=== PATIENT | female | born 1965 | race African-American/Black ===

== ENCOUNTER 2019-04-20 08:18 | Day surgery (SDC) | payer OTHER ==
[2019-04-20] MEDS ORDERED: CLINDAMYCIN 600 MG/D5W RTU 600 MG/50 ML RTUPB IV ONE (09:11)
[2019-04-20 09:18] LABS: HEMATOCRIT 45.4 % (36.0-47.0); HEMOGLOBIN 15.3 g/dL (12.0-15.5); MEAN CORPUSCULAR HEMOGLOBIN 31.3 pg (27.0-33.4); MEAN CORPUSCULAR HGB CONC 33.8 g/dL (32.0-36.0); MEAN CORPUSCULAR VOLUME 93 fl (80-97); PLATELET COUNT 259 10^3/uL (150-450); RED BLOOD COUNT 4.91 10^6/uL (3.72-5.28); RED CELL DISTRIBUTION WIDTH 14.6 % (11.5-14.0); WHITE BLOOD COUNT 8.9 10^3/uL (4.0-10.5)
[2019-04-20 09:43] LABS: ANION GAP 9 (5-19); BLOOD UREA NITROGEN 13 mg/dL (7-20); CALCIUM 10.1 mg/dL (8.4-10.2); CARBON DIOXIDE 29 mmol/L (22-30); CHLORIDE 104 mmol/L (98-107); GLUCOSE 110 mg/dL (75-110); POTASSIUM 4.2 mmol/L (3.6-5.0)
--- NOTE | 2019-04-20 11:08 | RADIOLOGY REPORT (SQ) ---
EXAM DESCRIPTION: CHEST SINGLE VIEW COMPLETED DATE/TIME: 04/20/2019 9:34 am REASON FOR STUDY: pre op COMPARISON: 11/26/2014 EXAM PARAMETERS: NUMBER OF VIEWS: One view. TECHNIQUE: Single frontal radiographic view of the chest acquired. RADIATION DOSE: NA LIMITATIONS: None. FINDINGS: LUNGS AND PLEURA: No opacities, masses or pneumothorax. No pleural effusion. MEDIASTINUM AND HILAR STRUCTURES: No masses. Contour normal. HEART AND VASCULAR STRUCTURES: Heart normal in size. Normal vasculature. BONES: No acute findings. HARDWARE: None in the chest. OTHER: No other significant finding. IMPRESSION: NO ACUTE RADIOGRAPHIC FINDING IN THE CHEST. TECHNICAL DOCUMENTATION: JOB ID: [id number] [employer]- All Rights Reserved Reading location - IP/workstation name: [email or web address]
[2019-04-20] MEDS ORDERED: PROPOFOL INJ 200 MG/20 ML VIAL IV ONE (11:53)
[2019-04-20] MEDS ORDERED: LIDOCAINE 2% INJ-PF (100 MG/5 ML) SYRINGE ONE (11:53)
[2019-04-20] MEDS ORDERED: DEXAMETHASONE SOD PHOSPHATE INJ 4 MG/1 ML VIAL ONE (11:54)
[2019-04-20] MEDS ORDERED: ONDANSETRON HCL INJ/PF 4 MG/2 ML SDV ONE (11:54)
[2019-04-20] MEDS ORDERED: MIDAZOLAM 2 MG/2 ML INJ ONE (11:54)
[2019-04-20] MEDS ORDERED: FENTANYL CITRATE INJ/PF 100 MCG/2 ML AMPUL ONE (11:54)
[2019-04-20] MEDS ORDERED: KETAMINE HCL INJ 500 MG/10 ML VIAL ONE (12:07)
[2019-04-20] MEDS ORDERED: BUPIVACAINE HCL 0.5 % INJ/PF 30 ML SDV ONE (12:09)
[2019-04-20] MEDS ORDERED: LIDOCAINE 1%/EPINEPHRINE INJ 20 ML VIAL ONE (12:09)
[2019-04-20] MEDS ORDERED: DIPHENHYDRAMINE HCL 50 MG/ML VIAL IV PRN (12:49)
[2019-04-20] MEDS ORDERED: MEPERIDINE HCL/PF INJ 25 MG/1 ML DISP.SYRIN IV PRN (12:49)
[2019-04-20] MEDS ORDERED: FENTANYL CITRATE INJ/PF 100 MCG/2 ML AMPUL IV PRN ×3 (12:49)
[2019-04-20] MEDS ORDERED: PROMETHAZINE HCL INJ 25 MG/1 ML VIAL IV PRN ×2 (12:49)
--- NOTE | 2019-04-20 12:55 | Discharge Summary ---
Discharge Summary (SDC) - Discharge Final Diagnosis: Right medial meniscal tear Date of Surgery: 04/20/19 Discharge Date: 04/20/19 Condition: Good Treatment or Instructions: Weightbearing as tolerated ambulation. Remove compressive wrap on Thursday. Underlying OpSite dressing can be left in place until you return to the office. You can shower once the compressive wrap has been removed. Please do not immerse it in a tub. Referrals: OSORIO MAURER MD [ACTIVE STAFF] - 05/05/19 10:00 am Discharge Diet: Regular Respiratory Treatments at Home: Deep Breathing/Coughing Discharge Activity: Balance Activity w/Rest, No tub bath Home Care Assistance: None Needed Report the Following to Your Physician Immediately: Shortness of Breath, Fever over 101 Degrees, Drainage-Foul Smelling
--- NOTE | 2019-04-20 12:56 | Operative Report ---
Operative Report DATE OF SURGERY: 04/20/19 PREOPERATIVE DIAGNOSIS: Right medial meniscal tear POSTOPERATIVE DIAGNOSIS: Right medial meniscal tear. Grade I chondromalacia medial compartment. Intact ACL. Grade I chondromalacia lateral compartment. Intact lateral meniscus. Grade I chondromalacia patellofemoral compartment OPERATION: For scopic right partial medial meniscectomy SURGEON: OSORIO MAURER ANESTHESIA: LMAC ESTIMATED BLOOD LOSS: Minimal PROCEDURE: With the patient supine on the operating table the right lower extremities prepped and draped in sterile fashion. The knee is insufflated with accommodation Marcaine, Xylocaine, and epinephrine. Subsequently medial and lateral infrapatellar portals are created and used for the introduction of the arthroscope and debridements mentation. Joint is examined in systematic fashion findings as above. Using combination of basket Sears, mechanical shaver, electric frequency ablation probe a partial medial meniscectomy performed from approximately 8:00 to 12:00 on the face of the dial. The joint is again examined in systematic fashion with no new findings. Instrumentation was removed. Portals reapproximated interrupted nylon. A sterile compressive dressing is applied and the patient returned to the PACU in satisfactory condition.
[2019-04-20] MEDS ORDERED: ALBUTEROL SULFATE 0.083% NEB 2.5 MG/3 ML AMPUL NEB ONE (13:10)
[2019-04-20] MEDS ORDERED: OXYCODONE-ACETAMINOPHEN 5-325 MG TABLET ONE (14:05)
[2019-04-20] MEDS ORDERED: OXYCODONE-ACETAMINOPHEN 5-325 MG TABLET PO PRN (14:12)
[2019-04-20 15:25] VITALS: BP 125/83
--- NOTE | 2019-04-20 21:39 | EKG REPORT ---
SEVERITY:- NORMAL ECG - SINUS RHYTHM : Confirmed by: Filippo Camarillo 20-Apr-2019 21:38:16
== END 2019-04-20 15:10 | disposition home or self-care (01) ==
LOC: OROUT 08:18
PROVIDERS: ATTEND Orthopaedic Surgery
DX: M23.303 Other meniscus derangements, unspecified medial meniscus, right knee (principal); M22.41 Chondromalacia patellae, right knee; M25.561 Pain in right knee; Z79.899 Other long term (current) drug therapy; Z79.51 Long term (current) use of inhaled steroids; E78.5 Hyperlipidemia, unspecified; J45.909 Unspecified asthma, uncomplicated
CPT/HCPCS: 36415; 85027; 80048; 71045; 93005; 93010; 29881; J2250; J3490 ×3; J1100; J3010; J2001; J2405; J2704

== ENCOUNTER 2020-01-27 00:02 | Emergency (ER) | payer OTHER ==
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
[2020-01-27 00:51] LABS: ALBUMIN 4.6 g/dL (3.5-5.0); ALKALINE PHOSPHATASE 78 U/L (38-126); ANION GAP 12 (5-19); ASPARTATE AMINO TRANSFERASE 23 U/L (14-36); BILIRUBIN,DIRECT 0.3 mg/dL (0.0-0.4); BILIRUBIN,TOTAL 0.5 mg/dL (0.2-1.3); BLOOD UREA NITROGEN 8 mg/dL (7-20); CARBON DIOXIDE 26 mmol/L (22-30); CHLORIDE 106 mmol/L (98-107); GLUCOSE 128 mg/dL (75-110); POTASSIUM 4.1 mmol/L (3.6-5.0); TOTAL PROTEIN 7.6 g/dL (6.3-8.2)
--- NOTE | 2020-01-27 00:57 | RADIOLOGY REPORT (SQ) ---
EXAM DESCRIPTION: CT HEAD WITHOUT IV CONTRAST COMPLETED DATE/TME: 01/27/2020 00:25 CLINICAL INDICATION: 55-year-old female with headache. COMPARISON: None. TECHNIQUE: CT brain without contrast. This exam was performed according to our departmental dose optimization program which includes use of automated exposure control, adjustment of the mA and/or kV according to patient size and/or use of iterative reconstruction technique. FINDINGS: The ventricles, sulci, and cisterns are within normal limits. The nicolas-white matter differentiation is preserved. There is no mass effect, midline shift, intra- or extra-axial fluid collection/acute hemorrhage. The osseous structures are unremarkable. The paranasal sinuses and mastoid air cells are clear. IMPRESSION: No acute intracranial abnormalities.
[2020-01-27 01:00] LABS: HEMOGLOBIN 14.7 g/dL (12.0-15.5); MEAN CORPUSCULAR HEMOGLOBIN 31.5 pg (27.0-33.4); MEAN CORPUSCULAR HGB CONC 34.1 g/dL (32.0-36.0); MEAN CORPUSCULAR VOLUME 92 fl (80-97); PLATELET COUNT 264 10^3/uL (150-450); RED BLOOD COUNT 4.66 10^6/uL (3.72-5.28); RED CELL DISTRIBUTION WIDTH 13.7 % (11.5-14.0); WHITE BLOOD COUNT 9.4 10^3/uL (4.0-10.5)
[2020-01-27 01:15] LABS: ABSOLUTE LYMPHOCYTES# (MANUAL) 4.7 10^3/uL (0.5-4.7); ABSOLUTE MONOCYTES # (MANUAL) 0.8 10^3/uL (0.1-1.4); BASOPHILS % (MANUAL) 0 % (0-2); EOSINOPHILS % (MANUAL) 6 % (0-6); LYMPHOCYTES % (MANUAL) 50 % (13-45); MONOCYTES % (MANUAL) 9 % (3-13); PLATELET COMMENT ADEQUATE; RBC MORPHOLOGY COMMENT NORMO-CYTIC/CHROMIC; SEGMENTED NEUTROPHILS % (MAN) 35 % (42-78); TOTAL CELLS COUNTED 100
--- NOTE | 2020-01-27 01:17 | RADIOLOGY REPORT (SQ) ---
EXAM DESCRIPTION: XR CHEST 1 VIEW COMPLETED DATE/TME: 01/27/2020 00:25 CLINICAL HISTORY: 55 years, Female, chest pain COMPARISON: X-ray chest 04/20/2019 NUMBER OF VIEWS: TECHNIQUE: LIMITATIONS: None. FINDINGS: No evidence of pulmonary infiltrate or pleural effusion. The heart and mediastinum are unremarkable. Pulmonary vascularity appears normal. There is no significant change, as compared with the prior x-ray(s). IMPRESSION: No acute finding. copyright 2010 [employer]- All Rights Reserved
[2020-01-27] MEDS ORDERED: LORAZEPAM INJ 2 MG/1 ML VIAL IV ONE (02:21)
[2020-01-27] MEDS ORDERED: ONDANSETRON HCL INJ/PF 4 MG/2 ML SDV IV ONE (02:22)
[2020-01-27] MEDS ORDERED: ACETAMINOPHEN 325 MG TABLET PO ONE (02:26)
[2020-01-27 03:50] VITALS: BP 132/89
--- NOTE | 2020-01-27 21:31 | EKG REPORT ---
SEVERITY:- ABNORMAL ECG - SINUS TACHYCARDIA BASELINE ARTIFSSSSCT. PROBABLY NORMAL EKG. : Confirmed by: Carol Ochoa MD 27-Jan-2020 21:30:51
== END 2020-01-27 05:39 | disposition home or self-care (01) ==
LOC: ER 00:02
DX: S06.0X9A Concussion with loss of consciousness of unspecified duration, initial encounter (principal); W22.8XXA Striking against or struck by other objects, initial encounter; G44.319 Acute post-traumatic headache, not intractable; R07.9 Chest pain, unspecified; R11.0 Nausea; J44.9 Chronic obstructive pulmonary disease, unspecified
CPT/HCPCS: 93005; 99285; 96374; 36415; 85025; 80053; 84484; 71045; 70450; 93010; J2060